=== PATIENT | male | born 1955 | race Caucasian/White ===

== ENCOUNTER 2018-07-27 19:08 | Inpatient (IN) | payer SELFPAY ==
[~2018-07-27] VITALS: Ht 188 cm; Wt 112.7 kg
[2018-07-27 20:15] LABS: GRAN # 4.2 (1.4-6.5); HEMATOCRIT 49.2 % (42.0-52.0); HEMOGLOBIN 17.2 g/dl (13.5-18.0); LYMPH # 0.4 (1.2-3.4); LYMPH % 7.4 % (20.0-51.0); MEAN CELL VOLUME 82 fl (80.0-100.0); MEAN CORPUSCULAR HEMOGLOBIN 29 pg (27.0-31.0); MEAN CORPUSCULAR HGB CONC 35 g/dl (33.0-37.0); MEAN PLATELET VOLUME 11.6 fl (7.4-10.4); MONO # 0.7 (0.1-0.6); MONO % 13.4 % (1.7-9.3); PLATELET COUNT 175 K/mm3 (130-400); RED BLOOD COUNT 6.04 M/mm3 (4.20-5.60); REDCELL DISTRIBUTION WIDTH-CV 14.3 % (11.5-14.5)
[2018-07-27 20:34] LABS: ALBUMIN 4.1 gm/dL (3.5-5.0); BILIRUBIN,TOTAL 1.6 mg/dL (0.0-1.0); C-REACTIVE PROTEIN 7.7 mg/dL (0.0-0.9); CALCIUM 9.8 mg/dL (8.4-10.2); CREATININE, serum 0.89 mg/dL (0.66-1.25); POTASSIUM 3.4 mmol/L (3.4-5.0); TOTAL PROTEIN 7.5 gm/dL (6.4-8.2)
[2018-07-27] MEDS ORDERED: LIPITOR 40MG TA40 MG PO (21:37)
[2018-07-27] MEDS ORDERED: HCTZ 25MG TAB25 MG PO (21:37)
[2018-07-27] MEDS ORDERED: CARDURA 1MG1 MG PO (21:37)
[2018-07-27] MEDS ORDERED: TOPROL XL100 MG PO (21:38)
[2018-07-27] MEDS ORDERED: TRICOR145 MG PO (21:38)
[2018-07-27] MEDS ORDERED: APRESOLINE50 MG PO (21:38)
[2018-07-27] MEDS ORDERED: ZESTRIL40 MG PO (21:38)
[2018-07-27 22:27] LABS: COLLECTION METHOD CLEAN CATCH
[2018-07-27 22:36] LABS: MUCOUS Present /lpf; PH 5 (5-8); SQUAMOUS EPITHELIAL 0-2 /hpf; URINE APPEARANCE Clear; URINE BACTERIA Rare /hpf; URINE BILIRUBIN Negative (NEGATIVE); URINE BLOOD Negative (NEGATIVE); URINE COLOR Yellow; URINE GLUCOSE Negative (NEGATIVE); URINE KETONE Negative (NEGATIVE); URINE LEUKOCYTE ESTERASE Negative (NEGATIVE); URINE NITRATE Negative (NEGATIVE); URINE PROTEIN(semi-quant) 1+ (NEGATIVE); URINE UROBILINOGEN Negative (NEGATIVE)
[2018-07-28] VITALS (283 sets, daily range): BP systolic 143–174; BP diastolic 74–88; PULSE 72–81; TEMP 97.4–98.1; O2SAT 88–96
[2018-07-28 02:47] LABS: INR 1.1 (0.8-3.0); PROTHROMBIN TIME 12.6 SECONDS (9.7-12.8)
[2018-07-28 02:50] LABS: MAGNESIUM 1.9 mg/dL (1.6-2.3); PHOSPHOROUS 3.3 mg/dL (2.5-4.5)
[2018-07-28 03:36] LABS: TROPONIN-I 6 HR POST INITIAL < 0.012 ng/mL (0.000-0.034)
[2018-07-28 07:20] LABS: CALCIUM 9.1 mg/dL (8.4-10.2); CHOLESTEROL RISK RATIO 4.4; CREATININE, serum 0.79 mg/dL (0.66-1.25); POTASSIUM 3.4 mmol/L (3.4-5.0)
[2018-07-29] VITALS (10 sets, daily range): BP systolic 164–208; BP diastolic 74–110; PULSE 67–87; TEMP 97.9–99.3
[2018-07-29 07:52] LABS: TROPONIN-I < 0.012 ng/mL (0.000-0.034)
[2018-07-29 08:00] LABS: ANION GAP 11 mmol/L (7-16); BLOOD UREA NITROGEN 18 mg/dL (9-20); CALCIUM 9.4 mg/dL (8.4-10.2); CARBON DIOXIDE 24 mmol/L (22-30); CHLORIDE 105 mmol/L (98-107); GLUCOSE 94 mg/dL (74-106); POTASSIUM 3.5 mmol/L (3.4-5.0); SODIUM 140 mmol/L (137-145)
[2018-07-30] VITALS (12 sets, daily range): BP systolic 172–218; BP diastolic 74–108; PULSE 68–78; TEMP 97.4–98.3
[2018-07-30 07:37] LABS: GRAN # 2.3 (1.4-6.5); GRAN % 62.4 % (42.2-75.2); HEMATOCRIT 45.8 % (42.0-52.0); HEMOGLOBIN 15.6 g/dl (13.5-18.0); LYMPH # 0.7 (1.2-3.4); LYMPH % 19.2 % (20.0-51.0); MEAN CELL VOLUME 83 fl (80.0-100.0); MEAN CORPUSCULAR HEMOGLOBIN 28 pg (27.0-31.0); MEAN CORPUSCULAR HGB CONC 34 g/dl (33.0-37.0); MEAN PLATELET VOLUME 12.3 fl (7.4-10.4); MONO # 0.7 (0.1-0.6); MONO % 18.1 % (1.7-9.3); PLATELET COUNT 175 K/mm3 (130-400); RED BLOOD COUNT 5.52 M/mm3 (4.20-5.60); REDCELL DISTRIBUTION WIDTH-CV 14.2 % (11.5-14.5)
[2018-07-30 07:50] LABS: CALCIUM 9.4 mg/dL (8.4-10.2); CREATININE, serum 0.61 mg/dL (0.66-1.25); POTASSIUM 3.1 mmol/L (3.4-5.0)
[2018-07-31 00:19] VITALS: BP 170/76; PULSE 80; TEMP 98.6
[2018-07-31 04:25] VITALS: BP 172/81; PULSE 75; TEMP 98.2
[2018-07-31 07:29] LABS: HEMATOCRIT 47.1 % (42.0-52.0); HEMOGLOBIN 16.2 g/dl (13.5-18.0); MEAN CELL VOLUME 82 fl (80.0-100.0); MEAN CORPUSCULAR HEMOGLOBIN 28 pg (27.0-31.0); MEAN CORPUSCULAR HGB CONC 34 g/dl (33.0-37.0); MEAN PLATELET VOLUME 11.8 fl (7.4-10.4); PLATELET COUNT 208 K/mm3 (130-400); RED BLOOD COUNT 5.74 M/mm3 (4.20-5.60); REDCELL DISTRIBUTION WIDTH-CV 14.2 % (11.5-14.5)
[2018-07-31 07:42] LABS: CALCIUM 9.5 mg/dL (8.4-10.2); CREATININE, serum 0.78 mg/dL (0.66-1.25); POTASSIUM 3.6 mmol/L (3.4-5.0)
[2018-07-31 08:00] LABS: BAND 19 % (0-10); LYMPHOCYTE 31 % (20.0-51.0); NEUTROPHILS 40 % (42.0-75.2); PLATELET ESTIMATE NORMAL (NORMAL)
[2018-07-31 08:04] VITALS: BP 171/81; PULSE 73; TEMP 97.7
[2018-07-31] MEDS ORDERED: ASPIRIN 32325 MG/TAB PO (08:20)
[2018-07-31] MEDS ORDERED: CIPRO 500MG TA500 MG PO (08:24)
== END 2018-07-31 11:01 | disposition home or self-care (01) | DRG 388 ==
LOC: COL.ER 19:08 → ICU 23:43 → MEDICAL 07-28 13:40
PROVIDERS: Nurse Practitioner; Nurse Practitioner Family; Physician Assistant
PROC: 0D9670Z Drainage of Stomach with Drainage Device, Via Natural or Artificial Opening (ICD-10-PCS; principal; 2018-07-29)
DX: K56.600 Partial intestinal obstruction, unspecified as to cause (principal); I50.31 Acute diastolic (congestive) heart failure; K52.9 Noninfective gastroenteritis and colitis, unspecified; I11.0 Hypertensive heart disease with heart failure; E78.5 Hyperlipidemia, unspecified; E87.6 Hypokalemia
CPT/HCPCS: OP; 99223-AI; 99232-AI; 99239; A9502; J0360; J0744; J1170; J1650; J1940; J2060; J2405; J3480; J7030; Q9967

== ENCOUNTER 2019-02-13 08:56 | Emergency (ER) | payer SELFPAY ==
[~2019-02-13] VITALS: Ht 188 cm; Wt 120.5 kg
[~2019-02-13 08:56] MED LIST: APRESOLINE50 MG PO; ASPIRIN 32325 MG/TAB PO; CARDURA 1MG1 MG PO; CIPRO 500MG TA500 MG PO; HCTZ 25MG TAB25 MG PO; LIPITOR 40MG TA40 MG PO; TOPROL XL100 MG PO; TRICOR145 MG PO; ZESTRIL40 MG PO
[2019-02-13 09:04] VITALS: TEMP 97.6
[2019-02-13] MEDS ORDERED: ASPIRIN 81M81 MG/TA2 (09:30)
[2019-02-13] MEDS ORDERED: NORVASC 10MG10 MG (09:31)
[2019-02-13 09:55] LABS: GRAN # 3.7 (1.4-6.5); HEMATOCRIT 44.2 % (42.0-52.0); HEMOGLOBIN 15.4 g/dl (13.5-18.0); LYMPH # 0.7 (1.2-3.4); LYMPH % 15.5 % (20.0-51.0); MEAN CELL VOLUME 82 fl (80.0-100.0); MEAN CORPUSCULAR HEMOGLOBIN 29 pg (27.0-31.0); MEAN CORPUSCULAR HGB CONC 35 g/dl (33.0-37.0); MEAN PLATELET VOLUME 11.2 fl (7.4-10.4); MONO # 0.3 (0.1-0.6); MONO % 7.1 % (1.7-9.3); PLATELET COUNT 153 K/mm3 (130-400); RED BLOOD COUNT 5.39 M/mm3 (4.20-5.60); REDCELL DISTRIBUTION WIDTH-CV 14.3 % (11.5-14.5)
[2019-02-13] MEDS ORDERED: ANTIVERT 25MG25 MG PO (10:37)
[2019-02-13 10:56] VITALS: BP 167/90; PULSE 68
== END 2019-02-13 10:58 | disposition home or self-care (01) ==
LOC: COL.ER 08:56
PROVIDERS: Emergency Medicine
DX: R42 Dizziness and giddiness (principal); I10 Essential (primary) hypertension

== ENCOUNTER 2021-01-18 15:28 | Observation (INO) | payer MEDICARE, OTHER ==
[~2021-01-18] VITALS: Ht 188 cm; Wt 126.2 kg
[~2021-01-18 15:28] MED LIST changes: +ANTIVERT 25MG25 MG PO; +ASPIRIN 81M81 MG/TA2 PO; +NORVASC 10MG10 MG PO
[2021-01-18 16:08] LABS: EOS % 0.2 % (0-4.0); GRAN # 4.8 (1.4-6.5); GRAN % 76.6 % (42.2-75.2); HEMATOCRIT 42.6 % (42.0-52.0); HEMOGLOBIN 14.5 g/dl (13.5-18.0); LYMPH # 0.9 (1.2-3.4); LYMPH % 13.9 % (20.0-51.0); MEAN CELL VOLUME 84 fl (80.0-100.0); MEAN CORPUSCULAR HEMOGLOBIN 29 pg (27.0-31.0); MEAN CORPUSCULAR HGB CONC 34 g/dl (33.0-37.0); MEAN PLATELET VOLUME 12.2 fl (7.4-10.4); MONO # 0.6 (0.1-0.6); PLATELET COUNT 161 K/mm3 (130-400); RED BLOOD COUNT 5.06 M/mm3 (4.20-5.60); REDCELL DISTRIBUTION WIDTH-CV 14.4 % (11.5-14.5)
[2021-01-18 16:17] LABS: ALANINE AMINOTRANSFERASE 42 U/L (4-49); ALBUMIN 3.8 gm/dL (3.5-5.0); ALKALINE PHOSPHATASE 58 U/L (50-136); ANION GAP 6 mmol/L (7-16); AST,SGOT 29 U/L (15-37); BILIRUBIN,TOTAL 0.9 mg/dL (0.0-1.0); BLOOD UREA NITROGEN 19 mg/dL (9-20); CALCIUM 9.5 mg/dL (8.4-10.2); CARBON DIOXIDE 26 mmol/L (22-30); CHLORIDE 107 mmol/L (98-107); CREATININE, serum 0.97 (0.66-1.25); GLUCOSE 107 mg/dL (74-106); LIPASE 181 U/L (23-300); POTASSIUM 3.7 mmol/L (3.4-5.0); SODIUM 139 mmol/L (137-145); TOTAL PROTEIN 6.6 gm/dL (6.4-8.2)
[2021-01-18 16:19] LABS: INR 1.1 (0.8-3.0)
[2021-01-18 16:22] LABS: PARTIAL THROMBOPLASTIN TIME 26.3 SECONDS (26.0-37.0)
[2021-01-18 16:29] LABS: TROPONIN-I < 0.012 ng/mL (0.000-0.035)
[2021-01-18 20:21] VITALS: BP 160/74; PULSE 68; TEMP 97.8
[2021-01-18] MEDS ORDERED: CLARITIN 1010 MG/TAB PO (21:21)
--- NOTE | 2021-01-18 21:55 | NUR ---
Arrived to unit via wheelchair with transport, awake, alert, oriented x 4, oriented to room, call light, fall precautions- slipper socks, telemetry initiated upon arrival, reviewed home medications, made comfortable in room, ambulates indepedently with stable gait, skin assessment completed, no skin breakdown noted. call light w/i reach.
[2021-01-19] VITALS (11 sets, daily range): BP systolic 131–164; BP diastolic 64–84; PULSE 66–89; TEMP 97.9–98.3
--- NOTE | 2021-01-19 09:58 | NUR ---
Pt assessment completed and charted. Pt down for lexiscan at this time. LS cta, HRRR. pt on room air, breathing is even and unlabored. BS active, pulses strong bilaterally. BLE edema 2+. Pt denies any chest pain, dizziness, N/V/D, abd pain, SOB. RAC IV flushes w/o issue. No further needs at this time.
--- NOTE | 2021-01-19 10:27 | NUR ---
Pt back from stress test, remains NPO at this time until results. pt aware, verbalizes understanding. No further needs at this time.
--- NOTE | 2021-01-19 12:32 | NUR ---
Pt called, stated he "wanted to go home, I have been waiting for over 2 hours, this is ridiculous, they can call me with results". I notified LILIAM Cummins and Dr. Hidalgo. Terell results are still not available. Physician in to round on patient at this time.
--- NOTE | 2021-01-19 13:39 | NUR ---
Discharge instructions discussed and reviewed w/ patient who verbalized understanding. All questions answered. RAC INT IV dc'd w/ cath tip intact. No further needs.
--- NOTE | 2021-01-19 14:23 | NUR ---
PT ESCORTED OUT [facility]/ [facility]. ARRIVED IN PRIVATE CAR TO TAKE PT HOME.
== END 2021-01-19 14:24 | disposition home or self-care (01) ==
LOC: COL.ER 15:28 → MEDICAL 16:55
PROVIDERS: Emergency Medicine; ADMIT Hospitalist
DX: R07.9 Chest pain, unspecified (principal); I11.0 Hypertensive heart disease with heart failure; I50.32 Chronic diastolic (congestive) heart failure; E78.5 Hyperlipidemia, unspecified; R79.89 Other specified abnormal findings of blood chemistry; Z88.2 Allergy status to sulfonamides; Z20.822 Contact with and (suspected) exposure to COVID-19; Z79.82 Long term (current) use of aspirin; I08.1 Rheumatic disorders of both mitral and tricuspid valves
CPT/HCPCS: 99223-AI; A9500; G0378; J2270; J2785; Q9967

== ENCOUNTER 2021-06-18 12:45 | Emergency (ER) | payer MEDICARE, OTHER ==
[~2021-06-18 12:45] MED LIST changes: +CLARITIN 1010 MG/TAB PO
== END 2021-06-18 12:52 | disposition left against medical advice (07) ==
LOC: COL.ER 12:45
DX: R69 Illness, unspecified (principal)

== ENCOUNTER 2023-10-29 03:38 | Emergency (ER) | payer MEDICARE, OTHER ==
[~2023-10-29] VITALS: Ht 188 cm; Wt 122.7 kg
[2023-10-29 03:45] VITALS: TEMP 98.4
[2023-10-29 03:59] LABS: BASO % 0.1 % (0.0-2.0); GRAN # 6.2 K/mm3 (1.4-6.5); GRAN % 78.7 % (42.2-75.2); HEMATOCRIT 46.1 % (42.0-52.0); HEMOGLOBIN 15.8 g/dl (13.5-18.0); LYMPH % 12.1 % (20.0-51.0); MEAN CELL VOLUME 83 fl (80.0-100.0); MEAN CORPUSCULAR HEMOGLOBIN 28 pg (27-31); MEAN CORPUSCULAR HGB CONC 34 g/dl (33.0-37.0); MEAN PLATELET VOLUME 11.7 fl (7.4-10.4); MONO # 0.7 K/mm3 (0.1-0.6); MONO % 8.8 % (1.7-9.3); PLATELET COUNT 155 K/mm3 (130-400); RED BLOOD COUNT 5.57 M/mm3 (4.20-5.60); REDCELL DISTRIBUTION WIDTH-CV 14.1 % (11.5-14.5)
[2023-10-29 04:18] LABS: ALBUMIN 3.6 gm/dL (3.4-4.8); BILIRUBIN,TOTAL 1.3 mg/dL (0.2-1.2); CALCIUM 9.8 mg/dL (8.4-10.2); CREATININE, serum 0.8 mg/dL (0.72-1.25); POTASSIUM 3.3 mmol/L (3.5-4.5)
[2023-10-29 04:52] LABS: COLLECTION METHOD CLEAN CATCH
[2023-10-29 05:33] LABS: URINE APPEARANCE Clear (CLEAR/HAZY); URINE COLOR Yellow (YELLOW)
[2023-10-29 05:34] LABS: URINE BLOOD TRACE-INTACT (NEGATIVE); URINE GLUCOSE Negative (NEGATIVE); URINE KETONE Negative (NEGATIVE); URINE NITRATE Negative (NEGATIVE); URINE PROTEIN(semi-quant) Negative (NEGATIVE); URINE UROBILINOGEN 0.2 E.U/dL (0.2-1.0)
[2023-10-29 05:35] LABS: MUCOUS Present (NOT PRESENT); SQUAMOUS EPITHELIAL 0-2 /hpf (0-10); URINE BACTERIA Rare /hpf (NONE SEEN)
[2023-10-29] MEDS ORDERED: PERCOCET 325 MG1 TA2 PO (08:15)
[2023-10-29 08:34] VITALS: BP 165/78; PULSE 76
== END 2023-10-29 08:34 | disposition home or self-care (01) ==
LOC: COL.ER 03:38
PROVIDERS: Emergency Medicine
DX: N20.0 Calculus of kidney (principal); R16.0 Hepatomegaly, not elsewhere classified
CPT/HCPCS: J7030

== ENCOUNTER 2024-01-19 14:34 | Emergency (ER) | payer MEDICARE, OTHER ==
[~2024-01-19] VITALS: Ht 188 cm; Wt 107.7 kg
[~2024-01-19 14:34] MED LIST changes: +PERCOCET 325 MG1 TA2 PO
[2024-01-19 14:39] VITALS: TEMP 97.5
[2024-01-19] MEDS ORDERED: Albuterol/Ipratropium 3 MG-0.5 MG/3 ML Neb Soln IH ONE (14:45)
[2024-01-19] MEDS ORDERED: methylPREDNISolone Sod Succ 125 MG/2 ML VIAL IV ONE (14:45)
[2024-01-19 15:13] LABS: HEMOGLOBIN 11.6 g/dl (13.5-18.0); MEAN CELL VOLUME 84 fl (80.0-100.0); MEAN CORPUSCULAR HEMOGLOBIN 27 pg (27-31); MEAN CORPUSCULAR HGB CONC 32 g/dl (33.0-37.0); MEAN PLATELET VOLUME 11.6 fl (7.4-10.4); PLATELET COUNT 185 K/mm3 (130-400); RED BLOOD COUNT 4.36 M/mm3 (4.20-5.60); REDCELL DISTRIBUTION WIDTH-CV 20.3 % (11.5-14.5)
[2024-01-19 15:20] LABS: HEMATOCRIT 36.7 % (42.0-52.0)
[2024-01-19 15:21] LABS: ALANINE AMINOTRANSFERASE 48 U/L (0-55); ALBUMIN 2.8 gm/dL (3.4-4.8); ALKALINE PHOSPHATASE 214 U/L (40-150); ANION GAP 13 mmol/L (7-16); AST,SGOT 27 U/L (5-34); BILIRUBIN,TOTAL 0.7 mg/dL (0.2-1.2); BLOOD UREA NITROGEN 14 mg/dL (8-26); CALCIUM 9.5 mg/dL (8.4-10.2); CARBON DIOXIDE 20 mmol/L (23-31); CHLORIDE 106 mmol/L (98-107); CREATININE, serum 0.97 mg/dL (0.72-1.25); GLUCOSE 203 mg/dL (70-99); SODIUM 139 mmol/L (136-145); TOTAL PROTEIN 6.2 gm/dL (6.2-8.1)
[2024-01-19 15:23] LABS: POTASSIUM 2.9 mmol/L (3.5-4.5)
[2024-01-19 15:32] LABS: TROPONIN-I < 0.010 ng/mL (0.00-0.033)
[2024-01-19 15:55] LABS: BAND 15 % (0-10); HYPOCHROMIA 3+; LYMPHOCYTE 27 % (20.0-51.0); METAMYELOCYTE 3 % (0-0); NEUTROPHILS 50 % (42.0-75.2)
[2024-01-19 15:56] LABS: ANISOCYTOSIS 2+; POLYCHROMASIA 1+
[2024-01-19 15:57] LABS: OVALOCYTES 1+; TEAR DROP CELLS 1+
[2024-01-19 15:58] LABS: SCHISTOCYTES 1+
[2024-01-19] MEDS ORDERED: diphenhydrAMINE 50 MG/ML 1 ML VIAL IV ONE (16:00)
[2024-01-19] MEDS ORDERED: PREDNISONE20 MG PO (16:54)
[2024-01-19 17:00] VITALS: BP 127/70; PULSE 81
[2024-01-28] MEDS ORDERED: ELIQUIS 5MG PO (14:32)
[2024-01-28] MEDS ORDERED: KLOR-CON M2020 MEQ PO (14:33)
[2024-01-28] MEDS ORDERED: MAGIC MOUTH PO (14:33)
[2024-01-28] MEDS ORDERED: LOMOTIL 0.025 M1 TAB PO (14:34)
[2024-01-28] MEDS ORDERED: XANAX 0.5MG0.5 MG PO (14:34)
[2024-01-28] MEDS ORDERED: PROAIR HFA0.09 MG/AC IH (14:35)
[2024-01-28] MEDS ORDERED: FLOMAX 0.40.4 MG/CAP PO (14:35)
[2024-01-29] MEDS ORDERED: CYMBALTA 30MG30 MG PO (08:38)
== END 2024-01-19 18:06 | disposition home or self-care (01) ==
LOC: COL.ER 14:34
PROVIDERS: Personal Emergency Response Attendant
DX: R06.00 Dyspnea, unspecified (principal); T78.40XA Allergy, unspecified, initial encounter; X58.XXXA Exposure to other specified factors, initial encounter
CPT/HCPCS: J1200; J2930